=== PATIENT | male | born 1990 | race American Indian/Alaskan Native ===

== ENCOUNTER 2017-11-03 15:30 | Emergency (ER) | payer OTHER ==
[2017-11-03 15:39] VITALS: BP 122/79
--- NOTE | 2017-11-03 17:01 | Cat Scan Report ---
FINAL REPORT PROCEDURE: CT head without contrast. TECHNIQUE: Computerized tomography of the head was performed without contrast material. HISTORY: head injury, brief LOC, N/V x 2 COMPARISON: No prior studies are available for comparison. FINDINGS: The ventricles are normal in size. The lima matter and white matter appear normal. There are no mass lesions. There is no intracranial hemorrhage. The calvarium appears intact. The mastoid air cells and visualized paranasal sinuses are well aerated. IMPRESSION: Normal study.
== END 2017-11-03 23:45 | disposition left against medical advice (07) ==
LOC: ED 15:30
DX: S09.90XA Unspecified injury of head, initial encounter (principal); Z53.21 Procedure and treatment not carried out due to patient leaving prior to being seen by health care provider; X58.XXXA Exposure to other specified factors, initial encounter; Y93.89 Activity, other specified; Y99.8 Other external cause status; Y92.89 Other specified places as the place of occurrence of the external cause
CPT/HCPCS: 70450

== ENCOUNTER 2017-11-28 05:57 | Emergency (ER) | payer OTHER ==
[2017-11-28 06:21] VITALS: BP 132/88
--- NOTE | 2017-11-28 08:04 | Emergency Department Report ---
HPI - General Chief Complaint: Neck Pain/Injury Time Seen by Provider: 11/28/17 07:23 - HPI HPI: he is a 26-year-old male with no prior medical history who presents to ED complaining of straining his neck while playing basketball about a week ago. Patient states he felt like he strained muscle in back of his neck last week while playing basketball. Patient states pain has resolved since then but is too wanted to come in to be Checked. Patient also states he has a history of herpes and has an oral outbreak. He denies any trauma or injury to the neck. Patient denies fever, nausea, vomiting, abdominal pain, chest pain, shortness of breath, headache or any other problems. Patient states he does not take any medication at the moment and has no allergies to any drug medication. ED Past Medical Hx - Past Medical History Previous Medical History?: No - Surgical History Past Surgical History?: No - Social History Smoking Status: Never Smoker Substance Use Type: None - Medications Home Medications: Home Medications Medication Instructions Recorded Confirmed Last Taken Type Bacitracin Zinc Oint 1 applicatio TP TID #22 gm 12/21/13 Unknown Rx Sulfamethoxazole/Trimethoprim 1 each PO BID #14 tablet 12/21/13 Unknown Rx [Bactrim Ds] Acyclovir [Zovirax Tab] 800 mg PO Q12H #14 tab 11/28/17 Unknown Rx Ibuprofen [Motrin] 600 mg PO Q8H PRN #20 tablet 11/28/17 Unknown Rx ED Review of Systems ROS: Stated complaint: NECK PAIN Other details as noted in HPI Constitutional: denies: chills, fever Eyes: denies: eye pain, eye discharge, vision change ENT: denies: ear pain, throat pain Respiratory: denies: cough, shortness of breath, wheezing Cardiovascular: denies: chest pain, palpitations Endocrine: no symptoms reported Gastrointestinal: denies: abdominal pain, nausea, vomiting, diarrhea Genitourinary: denies: urgency, dysuria, frequency, hematuria Musculoskeletal: denies: back pain, joint swelling, arthralgia Skin: denies: rash, lesions Neurological: denies: headache, weakness, paresthesias Psychiatric: denies: anxiety, depression Hematological/Lymphatic: denies: easy bleeding, easy bruising Physical Exam - Physical Exam Vital Signs: Vital Signs 11/28/17 06:18 Temperature 98.1 F Pulse Rate 53 L Respiratory 17 Rate Blood Pressure 132/88 O2 Sat by Pulse 98 Oximetry Physical Exam: GENERAL: Alert and oriented x3, no apparent distress, Normal Gait, atraumatic. HEAD: Head is normocephalic and a-traumatic. MOUTH:Mouth is well hydrated and with herpes like lesions on left lower lip. non draining, Tonsils nonerythematous or swollen, Uvula midline, Tongue not elevated. Mucous membranes are moist. Posterior pharynx clear, no exudate or lesions. Patent airways. NECK: Supple. Non edematous, No carotid bruits. No lymphadenopathy or thyromegaly. No C-spine tenderness, no nuchal rigidity, full range of motion of the neck, nontender to palpation. LUNGS: Symetrical with respiration, CTAB. HEART: S1, S2 present, regular rate and rhythm BACK: Full range of motion, no spinal tenderness, nontender to palpation. NEUROLOGIC: The patient is cooperative with no focal neurologic deficits. Normal speech. Normal sensation in bilateral upper and lower extremities, No loss of sensation, SKIN: Warm and dry, No lesions, No ulceration or induration present. ED Course Vital Signs 11/28/17 06:18 Temperature 98.1 F Pulse Rate 53 L Respiratory 17 Rate Blood Pressure 132/88 O2 Sat by Pulse 98 Oximetry ED Medical Decision Making - Medical Decision Making 26-year-old male with no prior medical condition present for neck myalgia ED course: I discussed the patient to avoid sugars activities for the next couple days. I discussed this with the patient to take Motrin as needed for neck pain. I discussed the patient is symptoms worsen or if he starts to develop new symptoms such as headache nausea vomiting to return to the ED immediately. The patient is neurologically intact has no neuro deficit He understands all instructions given. Vital signs are stable. Patient is in no acute distress. I discussed the patient will refill his antiviral medication for his herpes outbreak, he is to follow-up with health department or primary care physician. Critical care attestation.: If time is entered above; I have spent that time in minutes in the direct care of this critically ill patient, excluding procedure time. ED Disposition Clinical Impression: Cervical muscle strain Qualifiers: Encounter type: initial encounter Qualified Code(s): S16.1XXA - Strain of muscle, fascia and tendon at neck level, initial encounter Disposition: DC-01 TO HOME OR SELFCARE Is pt being admited?: No Does the pt Need Aspirin: No Condition: Stable Instructions: Muscle Strain (ED) Additional Instructions: Make sure to follow up with the primary care physician as discussed. Take all your medications as you've been prescribed. If you have any worsening symptoms or develop new symptoms please return to ED immediately. Prescriptions: Acyclovir [Zovirax Tab] 800 mg PO Q12H #14 tab Ibuprofen [Motrin] 600 mg PO Q8H PRN #20 tablet PRN Reason: Pain Referrals: PRIMARY CARE, [Primary Care Provider] - 3-5 Days [facility] [Outside] - 3-5 Days [facility] [Outside] - 3-5 Days [facility] [Outside] - 3-5 Days [facility] [Outside] - 3-5 Days Forms: Work/School Release Form(ED) Time of Disposition: 08:10
== END 2017-11-28 08:27 | disposition home or self-care (01) ==
LOC: ED 05:57
DX: S16.1XXA Strain of muscle, fascia and tendon at neck level, initial encounter (principal); X58.XXXA Exposure to other specified factors, initial encounter; Y93.89 Activity, other specified; Y92.89 Other specified places as the place of occurrence of the external cause; Y99.8 Other external cause status
CPT/HCPCS: 99282

== ENCOUNTER 2021-12-06 21:52 | Emergency (ER) | payer SELFPAY ==
--- NOTE | 2021-12-06 22:28 | Emergency Department Report ---
ED General Adult HPI - General Chief complaint: Sore Throat Stated complaint: SORE THROAT Time Seen by Provider: 12/06/21 22:22 Source: patient Mode of arrival: Ambulatory Limitations: No Limitations - History of Present Illness Initial comments: Patient is a 30-year-old -[place] male who presents for sore throat with anterior cervical lymph for patient for 4 days. Patient states fever pain with swallowing. There is no stridor or wheezing. Patient denies history of asthma or seasonal allergies. Patient denies shortness of breath. He is tolerating p.o. intake. States fever worse at night for sleep. Leaving factors - Related Data Previous Rx's Medication Instructions Recorded Last Taken Type Bacitracin Zinc Oint 1 applicatio TP TID #22 gm 12/21/13 Unknown Rx Sulfamethoxazole/Trimethoprim 1 each PO BID #14 tablet 12/21/13 Unknown Rx [Bactrim Ds] Acyclovir [Zovirax Tab] 800 mg PO Q12H #14 tab 11/28/17 Unknown Rx Ibuprofen [Motrin] 600 mg PO Q8H PRN #20 tablet 11/28/17 Unknown Rx Amoxicillin/Potassium Clav 1 each PO BID 7 Days #14 12/06/21 Unknown Rx [Augmentin 875-125 Tablet] Ibuprofen [Motrin 800 MG tab] 800 mg PO Q8HR PRN #30 tablet 12/06/21 Unknown Rx dexAMETHasone [Decadron] 4 mg PO BID 5 Days #10 tablet 12/06/21 Unknown Rx Allergies Allergy/AdvReac Type Severity Reaction Status Date / Time No Known Allergies Allergy Verified 12/06/21 22:12 ED Review of Systems ROS: Stated complaint: SORE THROAT Other details as noted in HPI Constitutional: chills, fever, malaise Eyes: denies: eye pain, eye discharge, vision change ENT: throat pain, congestion. denies: ear pain, hearing loss Respiratory: denies: cough, shortness of breath, wheezing Cardiovascular: as per HPI. denies: chest pain Endocrine: no symptoms reported Gastrointestinal: denies: abdominal pain, nausea, vomiting, diarrhea Genitourinary: denies: urgency, dysuria Musculoskeletal: denies: back pain, joint swelling, arthralgia Skin: denies: rash, lesions Neurological: denies: headache, weakness, paresthesias Psychiatric: denies: anxiety, depression Hematological/Lymphatic: denies: easy bleeding, easy bruising ED Past Medical Hx - Past Medical History Previous Medical History?: No - Surgical History Past Surgical History?: No - Social History Smoking Status: Never Smoker Substance Use Type: None - Medications Home Medications: Home Medications Medication Instructions Recorded Confirmed Last Taken Type Bacitracin Zinc Oint 1 applicatio TP TID #22 gm 12/21/13 Unknown Rx Sulfamethoxazole/Trimethoprim 1 each PO BID #14 tablet 12/21/13 Unknown Rx [Bactrim Ds] Acyclovir [Zovirax Tab] 800 mg PO Q12H #14 tab 11/28/17 Unknown Rx Ibuprofen [Motrin] 600 mg PO Q8H PRN #20 tablet 11/28/17 Unknown Rx Amoxicillin/Potassium Clav 1 each PO BID 7 Days #14 12/06/21 Unknown Rx [Augmentin 875-125 Tablet] Ibuprofen [Motrin 800 MG tab] 800 mg PO Q8HR PRN #30 tablet 12/06/21 Unknown Rx dexAMETHasone [Decadron] 4 mg PO BID 5 Days #10 tablet 12/06/21 Unknown Rx ED Physical Exam - General Limitations: No Limitations General appearance: alert, in no apparent distress - Head Head exam: Present: normocephalic, normal inspection - Eye Eye exam: Present: normal appearance, PERRL, EOMI. Absent: conjunctival injection, nystagmus Pupils: Present: normal accommodation - ENT ENT exam: Present: mucous membranes moist, TM's normal bilaterally, normal external ear exam - Expanded ENT Exam Expanded Throat exam: Positive: tonsillar erythema, tonsillomegaly, tonsillar exudate, other (Uvula midline no stridor no lesions airway is patent). Negative: R peritonsillar mass, L peritonsillar mass - Neck Neck exam: Present: normal inspection, full ROM, lymphadenopathy. Absent: tenderness - Expanded Neck Exam Expanded Neck exam: Absent: midline deformity, anterior neck swelling, thyroid mass, carotid bruit, tracheal deviation - Respiratory Respiratory exam: Present: normal lung sounds bilaterally. Absent: respiratory distress, wheezes, stridor, chest wall tenderness - Cardiovascular Cardiovascular Exam: Present: regular rate, normal heart sounds - GI/Abdominal GI/Abdominal exam: Present: soft, normal bowel sounds. Absent: distended, tenderness, bruit, hernia - Rectal Rectal exam: Present: deferred - Extremities Exam Extremities exam: Present: normal inspection, full ROM. Absent: tenderness - Back Exam Back exam: Present: normal inspection. Absent: CVA tenderness (R), CVA tenderness (L) - Neurological Exam Neurological exam: Present: alert, oriented X3, CN II-XII intact - Psychiatric Psychiatric exam: Present: normal affect, normal mood - Skin Skin exam: Present: warm, dry, intact, normal color. Absent: rash ED Course Vital Signs 12/06/21 22:10 Temperature 98.9 F Pulse Rate 88 Respiratory 20 Rate Blood Pressure 135/85 O2 Sat by Pulse 97 Oximetry ED Medical Decision Making - Lab Data Labs 12/06/21 Unknown Group A Strep Rapid Negative - Medical Decision Making This is bacterial pharyngitis , noted bilateral tonsillar exudate no lesions no stridor there is no peritonsillar abscess. Patient is tolerating p.o. intake. Plan DC to home with prescriptions, follow-up with your doctor in 2 to 3 days. Hydrate as directed. Return to emergency department if symptoms worsen or unable to tolerate p.o. Patient verbalized agreement and understanding with discharge plan. Patient DC'd home in stable condition at this time. Critical care attestation.: If time is entered above; I have spent that time in minutes in the direct care of this critically ill patient, excluding procedure time. ED Disposition Clinical Impression: Pharyngitis Qualifiers: Pharyngitis/tonsillitis etiology: unspecified etiology Qualified Code(s): J02.9 - Acute pharyngitis, unspecified Disposition: 01 HOME / SELF CARE / HOMELESS Is pt being admited?: No Does the pt Need Aspirin: No Condition: Stable Instructions: Pharyngitis Additional Instructions: Take medications as prescribed, hydrate as directed. Follow-up with your doctor in 2 to 3 days. Return to emergency department if symptoms worsen. Prescriptions: Amoxicillin/Potassium Clav [Augmentin 875-125 Tablet] 1 each PO BID 7 Days #14 dexAMETHasone [Decadron] 4 mg PO BID 5 Days #10 tablet Ibuprofen [Motrin 800 MG tab] 800 mg PO Q8HR PRN #30 tablet PRN Reason: Pain fever Referrals: LOUISA ARANA MD [Staff Physician] - 3-5 Days Forms: Work/School Release Form(ED) Time of Disposition: 23:49
[2021-12-06] MEDS ORDERED: dexAMETHasone 20 MG/5 ML VIAL IM ONE (23:43)
[2021-12-06] MEDS ORDERED: IBUPROFEN ORAL LIQD 100 MG/5 ML ORAL.LIQD PO ONE (23:43)
[2021-12-06] MEDS ORDERED: AMOXICILLIN/K CLAV 875/125MG TAB PO ONE (23:43)
[2021-12-07 02:07] VITALS: BP 139/81
== END 2021-12-07 00:55 | disposition home or self-care (01) ==
LOC: ED 21:52
DX: J02.9 Acute pharyngitis, unspecified (principal); Z79.899 Other long term (current) drug therapy
CPT/HCPCS: 87116; 87430; 96372; 99283; J1100